=== PATIENT | male | born 1970 | race Caucasian/White ===

== ENCOUNTER 2020-07-19 03:04 | Outpatient (CLI) | payer BC, SELFPAY ==
[2020-07-19 18:16] LABS: SARS-CoV-2 RNA PCR Negative
== END 2020-07-19 03:05 | disposition home or self-care (01) ==
LOC: ANHCOVIDDT 03:04
PROVIDERS: PCP Internal Medicine; Visit Provider Internal Medicine Gastroenterology
DX: Z01.812 Encounter for preprocedural laboratory examination (principal); Z20.828 Contact with and (suspected) exposure to other viral communicable diseases
CPT/HCPCS: 87635; C9803; U0003

== ENCOUNTER 2020-07-21 00:05 | Day surgery (SDC) | payer BC, SELFPAY ==
[2020-07-14 14:13] VITALS: BMI 23.4
[2020-07-21 06:17] VITALS: BP 112/75; PULSE 58; RESP 18; TEMP 36.2; O2SAT 100; BMI 24.2
[2020-07-21] MEDS: LACTATED RINGERS 1,000 ML 150 ML IV CONT (06:31)
--- NOTE | 2020-07-21 07:08 | WPDANESEPPF ---
Anes - Initial Pre Proc Eval Procedure: Operation Date: 07/21/20 07:30 Proposed Procedures p Screening Colonoscopy - Nicolas Grimes MD Date/Time: 07/21/20 07:08 Surgeon: Nicolas Grimes MD Pre Op Diagnosis: Neoplasm Screening Patient Data Age: 49 Gender: M Height: 5 ft 8 in Weight: 72.2 kg Last Vital Signs Temp 97.2 F L 07/21/20 06:17 Pulse 58 L 07/21/20 06:17 Resp 18 07/21/20 06:17 BP 112/75 07/21/20 06:17 Pulse Ox 100 07/21/20 06:17 Allergies Allergy/AdvReac Type Severity Reaction Status Date / Time No Known Allergies Allergy Mild Unverified 07/21/20 06:16 Home Medications Medication Instructions Recorded Confirmed Type No Home Medications 07/14/20 07/14/20 History Patient hx anesthesia problems: none Family hx anesthesia problems: none [facility] Past Medical History Medical History (Updated 07/21/20 @ 07:08 by Adolfo Waters MD) Healthy adult Social History Social History Years smoked: 5 Smoking status: Former smoker Tobacco type: cigarettes Alcohol intake: current Substance use: never Substance use type: does not use Spiritual care concerns: No Anes - Eval Final PreProcedure Day of Procedure 07/21/20 07:08 Patient weight: normal Heart: regular rate and rhythm Lungs: clear to auscultation Airway: Mallampati scale class II Neurological: alert and oriented Last oral intake: >/= 8 hours ASA classification: II Emergent: no Anesthetic plan: proceed Anesthesia type and monitoring: general GIVS and standard monitoring Informed Consent: The patient's anesthetic plan and its attendant risks and benefits were discussed with the patient/family/POA. Questions were solicited and answers provided to the satisfaction of the patient/family/POA.
--- NOTE | 2020-07-21 07:39 | WPDGICN ---
Assessment and Plan Assessment and plan (1) Encounter for screening colonoscopy: Code(s): Z12.11 - Encounter for screening for malignant neoplasm of colon Status: Acute Additional Plan Screening colonoscopy advised because of patient's age. This report follow separately. GI Consult Note Consult date/time: 07/21/20 07:39 HPI: Julio C Humphreys is a 49 year old male Seen in evaluation at the request of Dr. Mark Clark. Patient presents for screening colonoscopy. Patient reports that his current weight appetite bowel movements are normal. He denies abdominal pain. He has had no bleeding. His weight is stable. No abdominal pain noted. Family history is noncontributory. Review of Systems Review of Systems: All systems reviewed & are unremarkable except as noted in HPI and below PMFSH Past Medical History Medical History (Updated 07/21/20 @ 07:40 by Nicolas Grimes MD) Healthy adult Social History Social History Years smoked: 5 Smoking status: Former smoker Tobacco type: cigarettes Alcohol intake: current Substance use: never Substance use type: does not use Spiritual care concerns: No Meds Home Medications and Allergies Home Medications Medication Instructions Recorded Confirmed Type No Home Medications 07/14/20 07/14/20 History Allergies Allergy/AdvReac Type Severity Reaction Status Date / Time No Known Allergies Allergy Mild Unverified 07/21/20 06:16 Vital Signs Vital Signs - 24 hr 07/21/20 06:17 Temperature 97.2 F L Pulse Rate 58 L Respiratory Rate 18 Blood Pressure 112/75 Pulse Oximetry 100 Exam Narrative: Exam Narrative: Physical exam reveals patient to be alert. Vital signs stable. HEENT exam unremarkable. Lungs are clear to auscultation and percussion. Heart is without murmur or extra sounds. Abdominal exam bowel sounds are present soft nontender with no organomegaly. Digital external rectal exam is normal.
[2020-07-21 07:41] VITALS: BP 92/58; PULSE 66; RESP 16; O2SAT 99
[2020-07-21 07:51] VITALS: BP 96/67; PULSE 61; RESP 17; O2SAT 100
[2020-07-21 08:01] VITALS: BP 94/66; PULSE 50; RESP 14; O2SAT 100
== END 2020-07-21 08:20 | disposition home or self-care (01) ==
PROVIDERS: PCP Internal Medicine; Visit Provider Internal Medicine Gastroenterology
PROC: 0DJD8ZZ Inspection of Lower Intestinal Tract, Via Natural or Artificial Opening Endoscopic (ICD-10-PCS; CPT 45378; principal; 2020-07-21 07:30)
DX: Z12.11 Encounter for screening for malignant neoplasm of colon (principal); Z87.891 Personal history of nicotine dependence; K64.8 Other hemorrhoids
CPT/HCPCS: 45378; J2704; J7120